=== PATIENT | male | born 1995 | race Caucasian/White ===

== ENCOUNTER 2021-09-09 13:00 | Emergency (ER) | payer MEDICAID, OTHER ==
[~2021-09-09] VITALS: Ht 175.3 cm; Wt 102.1 kg
[2021-09-09 13:19] VITALS: BP 156/60
--- NOTE | 2021-09-09 13:36 | NUR ---
PT TAKEN TO ER BED 10
--- NOTE | 2021-09-09 14:15 | NUR ---
25/M BIB SELF WITH C/O SOB AND LOWER BACK PAIN TODAY. PATIENT STATES HE WAS AT WORK AND WAS "SMOKING CIGARETTES IN THE COLD" STATING HE BELIEVES IT CAUSED HIM TO BE SOB. PATIENT ALSO STATES HE BEGAN HAVING LOWER BACK PAIN TODAY, DENIES INJURY OR TRAUMA, DENIES TAKING ANYTHING FOR PAIN. PATIENT DENIES CP, FEVER, CHILLS OR URINARY SYMPTOMS.
[2021-09-09] MEDS ORDERED: predniSONE 20 MG TAB PO ONE (14:20)
[2021-09-09] MEDS ORDERED: ALBUTEROL SULFATE/IPRATROPIU 3 ML SOL IH ONE ×2 (14:20→19:10)
--- NOTE | 2021-09-09 14:40 | NUR ---
RT AT BEDSIDE FOR BREATHING TX AND TO OBTAIN ABG.
--- NOTE | 2021-09-09 14:46 | NUR ---
AMALIA AND FLU SWABS COLLECTED AND HANDED TO HUSKER OPERATOR.
--- NOTE | 2021-09-09 15:09 | NUR ---
20G IV ESTABLISHED TO RIGHT AC, LABS DRAWN AND HANDED TO DIE SIZER.
[2021-09-09 15:17] LABS: BASOPHILS % (AUTO) 0.2 % (0.0-2.0); EOSINOPHILS # (AUTO) 0.5 K/uL (0-0.4); EOSINOPHILS % (AUTO) 3.2 % (0.0-4.0); HEMOGLOBIN 16.3 g/dL (12.0-18.0); LYMPHOCYTES # (AUTO) 1.1 K/uL (2.0-11.5); LYMPHOCYTES % (AUTO) 6.2 % (20.5-51.1); MEAN CORPUSCULAR HEMOGLOBIN 30 pg (27-31); MEAN CORPUSCULAR HGB CONC 34 g/dL (33-37); MEAN CORPUSCULAR VOLUME 89.3 fL (80-94); MONOCYTES # (AUTO) 1.2 K/uL (0.8-1.0); MONOCYTES % (AUTO) 6.8 % (1.7-9.3); NEUTROPHILS # (AUTO) 14.3 K/uL (1.8-7.7); NEUTROPHILS % (AUTO) 83.6 % (42.2-75.2); PLATELET COUNT (AUTO) 246 K/uL (140-450); RED BLOOD CELL COUNT(AUTO) 5.38 MIL/uL (4.20-6.10); RED CELL DISTRIBUTION WIDTH 13.4 % (11.6-13.7); WHITE BLOOD COUNT (AUTO) 17.1 K/uL (4.8-10.8)
[2021-09-09 15:45] LABS: ANION GAP 17.3 (8-16); CARBON DIOXIDE 26.8 mmol/L (21-32); CREATININE 0.8 mg/dL (0.6-1.3); POTASSIUM 4.1 mmol/L (3.5-5.1)
[2021-09-09] MEDS ORDERED: cefTRIAXone 2,000 MG in DEXTROSE 5% 100 ML IV ONE (15:50)
[2021-09-09] MEDS ORDERED: cefTRIAXone 2,000 MG VIAL ONE (16:05)
[2021-09-09] MEDS ORDERED: NACL 0.9% 1,500 ML IV ONE (17:40)
--- NOTE | 2021-09-09 17:40 | NUR ---
PATIENT AMBULATED TO RESTROOM WITH STEADY GAIT
--- NOTE | 2021-09-09 18:51 | NUR ---
Patient to be transferred to [facility]. Is being transferred due to INSURANCE REQUEST. Receiving facility has accepting physician and available space. ER physician has signed transfer form. Patient or responsible constitution party has agreed to transfer and signed form. Patient belongings inventoried and will be sent with patient. Copy of nursing notes, lab reports, Physicians Orders and X-rays to be sent with patient. Report called to MORALES at receiving facility. [facility] ambulance service has been called for transfer. ETA is 45-60 MIN. REPORT GIVEN TO MORALES
--- NOTE | 2021-09-09 19:17 | NUR ---
Pt report given to VÍCTOR GRAHAM. Transfer of care at this time.
--- NOTE | 2021-09-09 19:55 | NUR ---
[facility] TRANSPORT AT BEDSIDE
--- NOTE | 2021-09-09 19:57 | NUR ---
PATIENT COAX4 FOR TRANSFER TO [facility]
[2021-09-09 19:58] VITALS: BP 127/60
== END 2021-09-09 20:02 | disposition short-term general hospital (02) ==
LOC: MED 13:00
DX: A41.9 Sepsis, unspecified organism (principal); Z20.822 Contact with and (suspected) exposure to COVID-19; J18.9 Pneumonia, unspecified organism; J45.901 Unspecified asthma with (acute) exacerbation; F17.200 Nicotine dependence, unspecified, uncomplicated; F12.90 Cannabis use, unspecified, uncomplicated; Z98.890 Other specified postprocedural states
CPT/HCPCS: 36415; 36600; 71045; 80048; 82803; 83605; 85025; 87040; 87426; 87804; 94640; 96361; 96365; 99291; J0696; J7030; J7512; Q0092